=== PATIENT | male | born 1950 | race African-American/Black ===

== ENCOUNTER 2023-10-26 07:52 | Day surgery (SDC) | payer MEDICARE, OTHER ==
[~2023-10-26] VITALS: Ht 175.3 cm; Wt 87.5 kg
[2023-10-26] VITALS (7 sets, daily range): BP systolic 120–146; BP diastolic 79–88; PULSE 50; RESP 12–15; O2SAT 90–94
[~2023-10-26 07:52] MED LIST: ASPI1TAB20 PO; ATOR-507 PO; DICL50TA2 PO; ESOM20CA PO; NITR0.4S29 SL
[2023-10-26] MEDS ORDERED: fentaNYL CITRATE 100 MCG/2 ML VL ONE (09:04)
[2023-10-26] MEDS ORDERED: VERAPAMIL 2.5MG/ML INJ 2ML VIAL IV ONE (09:04)
[2023-10-26] MEDS ORDERED: HEPARIN SODIUM (PORCINE) 5000 UNITS/ML 1ML VIAL ONE (09:05)
[2023-10-26] MEDS ORDERED: SODIUM CHL 0.9% 0 ML ONE (09:05)
[2023-10-26] MEDS ORDERED: LIDOCAINE 2%HCL (LOCAL ANESTH.) INJ 10ml MDV ONE (09:05)
[2023-10-26] MEDS ORDERED: ANGIOMAX 250 MG VIAL IV ONE (09:05)
[2023-10-26] MEDS ORDERED: MIDAZOLAM HCL 2MG/2ML 2ml VIAL (1mg/ml) ONE (09:05)
== END 2023-10-26 12:15 | disposition home or self-care (01) ==
LOC: CATH 07:52
PROVIDERS: ATTEND Internal Medicine Cardiovascular Disease
DX: I25.10 Atherosclerotic heart disease of native coronary artery without angina pectoris (principal); I10 Essential (primary) hypertension; I73.9 Peripheral vascular disease, unspecified; K21.9 Gastro-esophageal reflux disease without esophagitis; E78.5 Hyperlipidemia, unspecified; G47.00 Insomnia, unspecified; G47.33 Obstructive sleep apnea (adult) (pediatric); M54.10 Radiculopathy, site unspecified; Z79.899 Other long term (current) drug therapy; Z86.2 Personal history of diseases of the blood and blood-forming organs and certain disorders involving the immune mechanism; Z98.890 Other specified postprocedural states; Z87.891 Personal history of nicotine dependence; Z91.011 Allergy to milk products
CPT/HCPCS: 93454; 93571; C1725; C1769; C1894; J1644; J2001; J2250; J3010; Q9967; 99152; 99153